=== PATIENT | female | born 1965 | race Caucasian/White ===

== ENCOUNTER → 2020-02-18 | Outpatient (CLI) | payer OTHER | LOC: LAB 12:33 | PROVIDERS: ATTEND Surgery | DX: Z01.812 Encounter for preprocedural laboratory examination (principal); Z20.828 Contact with and (suspected) exposure to other viral communicable diseases; R19.09 Other intra-abdominal and pelvic swelling, mass and lump | CPT/HCPCS: U0003-CS ==

== ENCOUNTER 2020-02-22 06:05 | Day surgery (SDC) | payer OTHER ==
[~2020-02-22] VITALS: Ht 165.1 cm; Wt 77.0 kg
[2020-02-22] MEDS ORDERED: HYDROmorphone 2 MG/ML VIAL IV PRN (07:00)
[2020-02-22] MEDS ORDERED: fentaNYL PF VIAL 100 MCG/2 ML VIAL IV PRN (07:00)
[2020-02-22] MEDS ORDERED: IV RINGERS,LACTATED 1000ML 1,000 ML IV SCH (07:00)
[2020-02-22] MEDS ORDERED: LIDOCAINE 1% PF 2 ML VIAL. ID PRN (07:00)
[2020-02-22] MEDS ORDERED: ONDANSETRON PF 4 MG/2 ML VIAL. IV PRN (07:00)
[2020-02-22] MEDS ORDERED: PROCHLORPERAZINE 10 MG/2 ML VIAL. IV PRN (07:00)
[2020-02-22] MEDS ORDERED: MORPHINE SULFATE 2 MG/ML VIAL. IV PRN (07:00)
[2020-02-22] MEDS ORDERED: SUCCINYLCHOLINE 200 MG/10 ML VIAL. ONE (07:16)
[2020-02-22] MEDS ORDERED: fentaNYL PF VIAL 100 MCG/2 ML VIAL ONE ×2 (07:17→08:34)
[2020-02-22] MEDS ORDERED: LIDOCAINE 1%/EPI 1:100,000 20 ML VIAL. INJ ONE (07:30)
[2020-02-22] MEDS ORDERED: ONDANSETRON PF 4 MG/2 ML VIAL. ONE (08:00)
[2020-02-22] MEDS ORDERED: PROPOFOL 10 MG/ML (20ML) VIAL. IV ONE (08:00)
[2020-02-22] MEDS ORDERED: LIDOCAINE 2% PF 5 ML VIAL. ONE (08:00)
[2020-02-22] MEDS ORDERED: DEXAMETHASONE SOD PHOS 4 MG/ML VIAL ONE (08:00)
[2020-02-22] MEDS ORDERED: SEVOFLURANE 16 TO 30 MINUTES. IH ONE (08:06)
[2020-02-22] MEDS ORDERED: ePHEDrine PF IN SALINE 50 MG/10 ML SYRINGE. IV ONE (08:07)
[2020-02-22] MEDS ORDERED: BUPIVACAINE-EPI 0.25%-1:200000 MPF 30 ML VIAL. INJ ONE (08:15)
[2020-02-22] MEDS ORDERED: SEVOFLURANE 31 TO 60 MINUTES. IH ONE (08:15)
--- NOTE | 2020-02-22 08:18 | PDOC4 ---
Operative Note Operative Note Operative Note: Preoperative Diagnosis: Left lower quadrant subcutaneous mass Postoperative Diagnosis: Same Procedure: Excision of left lower quadrant subcutaneous mass Surgeon: Tulio Anesthesia: General EBL: 10 mL Specimen: Left lower quadrant mass 3.5 x 3 cm to pathology Drains: None Complications: None Indication: The patient is a 54-year-old female who was referred with a subcutaneous mass of the left lower quadrant. She requests excision. The risks of surgery were discussed which include bleeding, infection, recurrence, pain, anesthetic risk, potential need for additional surgery procedure. She understands and would like to proceed. Description: The patient was taken to the operating room and placed supine on the operating table. General anesthesia was performed. The left abdomen is prepped with ChloraPrep and draped in a standard surgical manner. An incision was made directly overlying the mass. Cautery dissection was carried down subcutaneous tissue. The mass was readily identified and consisted of lobulated adipose tissue consistent with a lipoma. This was mobilized from the surrounding tissues with a combination of cautery and blunt dissection. The mass was fully excised and measured 3.5 x 3 cm. The specimen was sent to pathology. Inspection showed no other abnormalities. Hemostasis was achieved with cautery. The subcutaneous tissue was closed with 3-0 Vicryl. Skin was approximated with 4-0 Monocryl. The incision was infiltrated with half percent Marcaine with epinephrine. Steri-Strips and a sterile dressing were applied. The patient tolerated the procedure well and was sent to the recovery room in stable condition. At the end of the case all counts were correct. PONCHO BARROSO MD Feb 22, 2020 08:18
--- NOTE | 2020-02-22 08:20 | DISCH ---
DISCHARGE INSTRUCTIONS Condition on Discharge Condition on Discharge: Stable Activity After Discharge Activity Instructions for Disc: Activity as tolerated Diet after Discharge Diet after Discharge: Regular Wound Incision Care Wound/Incision Care: Other, see below (keep dressing clean and dry X 72 hours, may then remove and shower) Follow-Up Follow up with: Dr Barroso in 2 weeks, call for appointment PONCHO BARROSO MD Feb 22, 2020 08:20
[2020-02-22] MEDS ORDERED: HYDR-3164 PO (08:30)
[2020-02-22] MEDS: fentaNYL PF VIAL 100 MCG/2 ML VIAL IV PRN ×2 (08:38→08:50)
[2020-02-22] MEDS ORDERED: HYDROcodone/APAP 5/325MG 1 TAB TABLET PO ONE (08:45)
[2020-02-22 08:55] VITALS: BP 119/49
--- NOTE | 2020-02-24 18:19 | PATHOLOGY ---
[facility] Accession Number: [id number] . 01 Material submitted: . abdomen - LEFT LOWER QUAD SUBQ MASS. Modifiers: left, lower . 01 Clinical history: . ABD MASS . 02 Diagnosis: Segments of adipose and fibroadipose tissue, left lower quadrant subcutaneous mass: - Lipoma. . ([facility]:mm; 02/24/2020) [facility] 02/24/2020 1043 Local . 02 Comment: There is no evidence of malignancy. . ([facility]:mm; 02/24/2020) . 02 Electronically signed: . Josias Anne MD, Pathologist NPI- [id number] . 01 Gross description: . The specimen is received in formalin, labeled "Forssberg, Saida, L lower quad" and consists of multiple irregular segments of yellow lobulated tissue measuring 6.0 x 4.6 x 1.7 cm. Sectioning reveals no gross lesions and medical center representative sections are submitted in A1-A2. (SDY; 02/23/2020) SYU/SYU 02/23/2020 1120 Local . 02 Pathologist provided ICD-10: D17.1 . 02 CPT . 800361 Specimen Comment: A courtesy copy of this report has been sent to [phone], [phone] Specimen Comment: [id number] Specimen Comment: Report sent to / DR LAWSON Performed at: 01 [facility] [address], [place] [id number] MD Zia Hernandez MD Phone: [phone] Performed at: 02 [facility] [address], [place] [id number] MD Josias Anne MD Phone: [phone]
== END 2020-02-22 09:30 | disposition home or self-care (01) ==
LOC: SURG 06:05 → EDUNIT# 07:30 → SURG 09:30
PROVIDERS: ATTEND Surgery
DX: D17.1 Benign lipomatous neoplasm of skin and subcutaneous tissue of trunk (principal); Z79.899 Other long term (current) drug therapy
CPT/HCPCS: 22903; 81025; A7015; J0330; J0690; J1100; J2405; J2704; J3010; J3490